=== PATIENT | male | born 1950 | race African-American/Black ===

== ENCOUNTER → 2018-07-28 | Outpatient (CLI) | payer OTHER ==
[~2018-07-28] MED LIST: CLARITIN 1010 MG/TAB PO; HYTRIN10 M1 PO; IMURAN 50MG TAB50 MG PO; PRINZIDE 12.5 M1 TA1 PO; STOOL SOFTENER100 M2 PO
== END ==
LOC: COL.RAD 10:29
DX: I67.82 Cerebral ischemia (principal); R41.3 Other amnesia